=== PATIENT | female | born 1980 | race Caucasian/White ===

== ENCOUNTER → 2024-08-24 08:51 | Outpatient (CLI) | payer OTHER, SELFPAY ==
--- NOTE | 2024-08-24 13:02 | ST.SWALLOW ---
Visit Care Team Role Provider Type Attending Provider Referring Provider Specialty: Address: Phone: Fax: Email: ST Modified Barium Swallow Study [employer] Modified Barium Swallow Study Start: 08/24/24 12:27 Freq: Status: Active Protocol: Document 08/24/24 12:28 SS (Rec: 08/24/24 12:35 SS [id number]) Modified Barium Swallow Study Total Time Visit Start Time 09:00 Visit Stop Time 09:30 Total Visit Minutes [address] Klarissa Hill Reason for Referral Suspected pharyngoesophageal dysphagia Setting Setting Outpatient Care Patient Information Identification Type Name Patient History Per clinical swallow evaluation on 07/16/24, Mary Wang is a 43 year-old female presenting for a clinical swallow evaluation at the referral of Dr. Emilia Hill at [facility]. The pt experiences globus sensation throughout the day as well as increased mucous. Additionally, she experiences a sticking sensation primarily with solids and occasionally with liquids in the general area of the larynx with an onset of about six months ago. She swallows pills without difficulty. She also reports that she gulps air when eating and drinking and often feels prematurely full during meals. She denied coughing and choking or other airway intrusion problems with PO intake. However, she reported new onset of coughing fits that last for several minutes and occur about once daily with sensation of PND. She reported no significant medical history and denied history of PNA. Pt reported she takes over the counter medications for GERD. She reported history of IBS. Current diet is regular textures, thin liquids, pills with water. The pt has not modified her diet to accommodate for swallowing difficulties. She reported no unintentional weight loss. Pt was seen today for Modified Barium Swallow Study (MBSS), to visualize and assess swallow function and anatomy, determine aspiration risk, make appropriate and updated diet and treatment recommendations, as well as to identify need for additional referrals. She reported no changes to swallowing function since CSE, though reported a lingering chronic cough. Subjective Observations Patient?s cognitive and/or communication status is notable for intact communication and cognition. Patient is alert and oriented x 4. Oral motor evaluation was WNL. Natural and complete dentition in adequate condition for age. Test boluses were administered as indicated below. Patient Positioning Position View Lat-A/P Imaging Lateral View Textures Administered Trials Presented Thin Liquid via Cup (IDDSI 0), Thin Liquid via Straw (IDDSI 0 ),Puree (IDDSI 4),Regular ( IDDSI 7) Barium Tablet Yes The IDDSI Framework Protocol: IDDSI.1 Oral Impairment Source: The Modified Barium Swallow Impairment Profile (MBSImP??) Lip Closure No labial escape Tongue Control During Bolus Hold Cohesive bolus between tongue to palatal seal Bolus Preparation/Mastication Timely & efficient chewing & mashing Bolus Transport/Lingual Motion Brisk tongue motion Oral Residue Trace residue lining oral structures Location Floor of mouth,Palate,Tongue Initiation of Pharyngeal Swallow Bolus head in valleculae Additional Oral Impairment Observations Oral Phase is WNL. Good containment and acceptance of bolus. Patient demonstrated adequate labial seal. Bolus formation was organized and efficient. Anterior-posterior transit of the bolus was timely. Normal rotary mastication. Trace residue observed following multiple independent swallows. Oral bolus control was WNL. Pharyngeal Impairment Source: The Modified Barium Swallow Impairment Profile (MBSImP??) Soft Palate Elevation No bolus between soft palate & pharyngeal wall Laryngeal Elevation Comp.sup.move.thyroid cart.w/ comp.approx.arytenoids to epiglot petiole Anterior Hyoid Excursion Complete anterior movement Epiglottic Movement Complete inversion Laryngeal Vestibular Closure Complete; no air/contrast in laryngeal vestibule Pharyngeal Stripping Wave Present - diminished Pharyngoesophageal Segment Opening Complete distention & complete duration; no obstruction of flow Tongue Base Retraction Trace column of contrast/air betwn tongue base & post. pharyngeal wall Pharyngeal Residue Trace residue within/on pharyngeal structures Location Diffuse (>3 areas) Additional Pharyngeal Impairment Mild Impairment. Swallow was Observations initiated with liquids at the valleculae, which is a typical variation. Velopharyngeal closure was adequate. Hyoid/ laryngeal elevation was judged to be adequate. The epiglottis did invert; inversion is characterized as complete. Tongue base retraction was mildly reduced. Pharyngeal stripping wave was mildly reduced. Complete distention and duration during cricopharyngeal opening with smooth bolus flow into the esophagus. Post-swallow residue was mild, primarily at the base of tongue, posterior pharyngeal wall, and pyriform sinus. No tracheal penetration or aspiration noted. A/P View Textures Administered Trials Presented Thin Liquid via Cup (IDDSI 0), Regular (IDDSI 7) The IDDSI Framework Protocol: IDDSI.1 A/P View Observations Pharyngeal Contraction Complete Esophageal Clearance Upright Position Esophageal retention Vocal Fold Function Good Esophageal Function Slowed Clearing,Poor Motility Additional A-P Observations Esophageal retention from sternal area to mid- esophagus and slow clearance noted with regular solids. Thin liquid appeared to clear the esophagus in a timely manner. No retroflow of upper esophagus observed. Air bubbles noted within the esophagus which likely contribute to patient?s aerophagia and feeling prematurely full. The barium tablet passed through to the esophagus without overt difficulties. Clinical Impressions Dysphagia Type Esophageal Findings Oral and pharyngeal swallow phases observed to be WFL. Esophageal phase demonstrated retention with no retroflow in upper esophagus. Pt appears to demonstrate esophageal and gastrointestinal issues that are not within [employer] scope of practice. Recommend pt return to GI for regular (not modified) barium swallow study of GI structures for further assessment. Patient Appropriate for Therapy No Recommendations Diet Liquids Order Thin (IDDSI 0) Diet Order Regular (IDDSI 7) Medication Recommendation As Tolerated,Whole Comments No change to current diet Aspiration Precautions Recommended Precautions Upright at 90 Degrees, Alternate Liquids/Solids Additional Precautions Remain upright after PO intake for at least 30 minutes Treatment Plan Recommended Referrals GI Consult
== END ==
DX: R47.02 Dysphasia (principal)
CPT/HCPCS: 74230; 92611